=== PATIENT | female | born 1950 | race Caucasian/White ===

== ENCOUNTER 2016-10-20 21:58 | Observation (INO) | payer OTHER ==
[~2016-10-20] VITALS: Ht 162.6 cm; Wt 78.6 kg
--- NOTE | 2016-10-20 23:28 | DIAGNOSTIC IMAGING REPORT ---
PROCEDURE: XR CHEST 1 VIEW INDICATION: PALPITATIONS TECHNIQUE: Single view chest. 2320 hours COMPARISON: 08/24/2013 FINDINGS: The cardiopulmonary contour and central vasculature are stable, within normal limits. The lungs are clear without focal consolidation, pleural effusion or pneumothorax. The osseous structures are intact. IMPRESSION: 1. No evidence of acute cardiopulmonary disease.
--- NOTE | 2016-10-21 00:59 | ED ORDER SUMMARY ---
..... Patient: NATASHA SALAAZR OrderSheet [facility] VisitID: [id number] [place], [place] [id number] 66y, F Registration Date/Time: 10/20/2016 ORDER SHEET Weight: 72.5 kg (stated) Allergies: None GENERAL ORDERS: Chest 1V Urgent (22:19 10/20/2016 Musa CAMPOS) (Ack 22:24 CHagmisti ER Digital Media Planner) (1:53 CHagerty ER Digital Media Planner) Long Goods Drier (Continuous) (22:19 10/20/2016 Musa CAMPOS) (22:47 RMarsden R.N.) CBC w Diff Urgent (22:10/20/2016 Musa CAMPOS) (Ack 22:24 CHagmisti ER Digital Media Planner) (Collected 22:47 RMarsden R.N.) (23:21 RMarsden R.N.) CMP Urgent (22:19 10/20/2016 Musa CAMPOS) (Ack 22:24 CHagmisti ER Digital Media Planner) (Collected 22:47 RMarsden R.N.) (23:21 RMarsden R.N.) UA-Culture if indicated Urgent (22:19 10/20/2016 Musa CAMPOS) (Ack 22:24 Nadia ER Digital Media Planner) (Collected 22:47 RMarsden R.N.) (2:42 RMarsden R.N.) PT with INR Urgent (22:19 10/20/2016 Musa CAMPOS) (Ack 22:24 Nadia ER Digital Media Planner) (Collected 22:47 RMarsden R.N.) (23:21 RMarsden R.N.) PTT Urgent (22:19 10/20/2016 Musa CAMPOS) (Ack 22:24 Nadia ER Digital Media Planner) (Collected 22:47 RMarsden R.N.) (23:21 RMarsden R.N.) Amylase Urgent (22:19 10/20/2016 Musa CAMPOS) (Ack 22:24 Nadia ER Digital Media Planner) (Collected 22:47 RMarsden R.N.) (23:21 RMarsden R.N.) Lipase Urgent (22:19 10/20/2016 Musa CAMPOS) (Ack 22:24 CHagerty ER Digital Media Planner) (Collected 22:47 RMarsden R.N.) (23:21 RMarsden R.N.) CPK Urgent (22:19 10/20/2016 Musa CAMPOS) (Ack 22:24 CHagerty ER Digital Media Planner) (Collected 22:47 RMarsden R.N.) (23:21 RMarsden R.N.) Troponin-I Urgent (22:19 10/20/2016 Musa CAMPOS) (Ack 22:24 CHagerty ER Digital Media Planner) (23:21 RMarsden R.N.) BNP Urgent (22:19 10/20/2016 Musa CAMPOS) (Ack 22:24 CHagerty ER Digital Media Planner) (23:21 RMarsden R.N.) TSH Urgent (22:19 10/20/2016 Musa CAMPOS) (Ack 22:24 CHagerty ER Digital Media Planner) (23:21 RMarsden R.N.) Oxygen (2 L/min) (NC) (22:19 10/20/2016 Musa CAMPOS) (22:47 RMarsden R.N.) Pulse oximeter (22:19 10/20/2016 Musa CAMPOS) (22:47 RMarsden R.N.) EKG - ER Stat (22:19 10/20/2016 Musa CAMPOS) (22:31 CHagerty ER Digital Media Planner) MEDICATION ORDERS: IV FLUIDS: IV Saline Lock (22:19 10/20/2016 Musa CAMPOS) (22:48 RMarsden R.N.) ORDER SHEET NOTES: [Electronically signed by Paty Lenz R.N. (02:42 10/21/2016)] [Electronically signed by Sal López MD (11:13 10/21/2016)] [Electronically locked/signed by Paty Lenz R.N. (02:42 10/21/2016)]
--- NOTE | 2016-10-21 00:59 | ED CLINICAL REPORT ---
Clinical Report - Physicians/Mid Levels [facility] [address] [place] [address] 10/20/2016 21:58 Patient: NATASHA SALAZAR Time Seen: 22:18. Arrived- By private vehicle. Historian- patient. HISTORY OF PRESENT ILLNESS Chief Complaint: PALPITATIONS. It is described as an irregular heart beat. Not described as dizziness or weakness. This started today and is still present. Onset during rest. No history of caffeine use prior to onset, decongestants use prior to onset, cocaine use prior to onset or amphetamine use prior to onset. It was abrupt in onset and has been intermittent and waxing/waning. Modifying factors. Not worsened by anything. The patient has had chest discomfort ("a little indigestion"). No difficulty breathing, fainting episodes, dizziness, tingling or muscle spasms. Similar symptoms previously: Once. Diagnosis: (atrial fibrillation). REVIEW OF SYSTEMS All systems otherwise negative, except as recorded above. PAST HISTORY PCP - [facility]. Problems: Chest Pain. Ectopic . Back Pain. GI Bleeding. Hypertension. Additional Surgeries: Back Surgery. Medications: Tylenol Oral 650 mg, 2x a day. Sucralfate Oral 1 gm, as needed. Zolpidem Tartrate Oral (Tablet 10 mg) 1/2 tablet. Omeprazole Oral 20 mg, daily. Metoprolol Succinate ER Oral (Tablet Extended Release 24 Hour 25 mg) 1 tablet. Lisinopril Oral (Tablet 20 mg) 1 tablet, daily. Gabapentin Oral 200 mg, 2x a day. Coumadin Oral (Tablet 5 mg) 1 tablet, daily. Allergies: None. SOCIAL HISTORY Smoker- current status unknown. Regular alcohol use; consumes beer daily. No drug use. FAMILY HISTORY Denies family medical history. ADDITIONAL NOTES The nursing notes have been reviewed. PHYSICAL EXAM Vital Signs: 10/20/2016 22:08 BP: 117/69. HR: 84. RR: 15. O2 saturation: 95%. Temp: 97.9 F. Pain level now: 0/10. Have been reviewed. Appearance: Alert. Eyes: Pupils equal, round and reactive to light. ENT: Pharynx normal. Neck: Normal inspection. Neck supple. CVS: Normal heart rate and rhythm. Heart sounds normal. Respiratory: No respiratory distress. Breath sounds normal. Abdomen: Soft and nontender. Bowel sounds normal. No organomegaly. No mass. Back: Normal external inspection. Skin: Skin warm and dry. Normal skin color. Normal skin turgor. Extremities: Extremities exhibit normal ROM. No calf tenderness. No lower extremity edema. LABS, X-RAYS, AND EKG EKG: Rate: 69. Ectopic beats. Premature ventricular contractions. Changes present when compared to prior EKG. (25 August 2013). The study has been independently viewed by me. Chest X-ray: (IMPRESSION: 1. No evidence of acute cardiopulmonary disease.). The X-rays were interpreted by the radiologist and contemporaneously by me. Laboratory Tests: UA-Culture if indicated: (NICOLE: 10/21/2016 00:28) ( [facility] [place] 10/21/2016 00:42) Final results Test Result Flag Units (Reference) URINE COLOR YELLOW URINE APPEARANCE CLEAR URINE GLUCOSE NEGATIVE (NEGATIVE) URINE BILIRUBIN NEGATIVE (NEGATIVE) URINE KETONE NEGATIVE (NEGATIVE) URINE SPECIFIC GRAVITY <= 1.005 L (1.010-1.030) URINE PH 6.0 (5.0-8.0) URINE PROTEIN NEGATIVE (NEGATIVE) URINE UROBILINOGEN 0.2 EU/dL (0.2-1.0) URINE NITRITE NEGATIVE (NEGATIVE) URINE BLOOD 1+ (NEGATIVE) URINE LEUK ESTERASE POSITIVE (NEGATIVE) URINE RBC 0-1 rbc/hpf (0-1) URINE WBC 0-1 wbc/hpf (0-1) URINE EPITHELIAL CELLS 0-1 EPI/hpf (0-5) URINE BACTERIA TRACE (<1+) (NONE SEEN) URINE COMMENT CULTURE INDICATED URINE CULTURES ARE SET-UP BASED ON THE FOLLOWING CRITERIA:POSITIVE NITRITEPOSITIVE LEUKOCYTE ESTERASEGREATER THAN 10 WHITE BLOOD CELLSMODERATE (2+) OR GREATER BACTERIA CBC w Diff: (NICOLE: 10/20/2016 22:20) ( [facility] 10/20/2016 22:37) Final results Test Result Flag Units (Reference) WHITE BLOOD COUNT 8.5 K/uL (4.5-11.5) RED BLOOD COUNT 4.14 M/uL (4.00-5.20) HEMOGLOBIN 12.5 gm/dL (12.0-16.0) HEMATOCRIT 37.4 % (36.0-46.0) MEAN CELL VOLUME 90 fL (80-100) MEAN CORPUSCULAR HGB 30 pg (26-34) MEAN CORPUSCULAR HGB CONC 34 g/dL (31-37) RED CELL DISTRIBUTION WIDTH 13.9 % (11.6-14.8) PLATELET COUNT 300 K/uL (150-400) NEUTROPHIL % 56.2 % (50-75) LYMPH % 33.4 % (25-40) MONO % 7.9 % (3-14) EOSINOPHIL % 2.2 % (0-4) BASOPHIL % 0.3 % (0-2) PTT: (NICOLE: 10/20/2016 22:20) ( [facility] 10/20/2016 22:46) Final results Test Result Flag Units (Reference) INR 2.6 H (0.8-1.2) Low Intensity Therapy: INR 1.5-2.0 PT range 18.5-23.1Mod.Intensity Therapy: INR 2.0-3.0 PT range 23.1-31.5High Intensity Therapy: INR 2.5-3.5 PT range 27.4-35.5High Intensity Therapy 2: INR 3.0-4.0 PT range 31.5-39.3 APTT 36 H SECONDS (24-34) BNP: (NICOLE: 10/20/2016 22:20) ( [facility] 10/20/2016 22:52) Final results Test Result Flag Units (Reference) B-TYPE NATRIURETIC PEPTIDE 85 pg/ml (5-100) CMP: (NICOLE: 10/20/2016 22:20) ( [facility] 10/20/2016 23:01) Final results Test Result Flag Units (Reference) GLUCOSE 113 H mg/dL (70-110) BUN 16 mg/dL (7-18) CREATININE 0.9 mg/dL (0.6-1.3) Estimated GFR >60 mL/min Estimated GFR- >60 mL/min Note: Persistent reduction over 3 months in eGFR<60 mL/min/1.73 m2 defines CKD. Patients with eGFR values>=60 mL/min/1.73 m2 may also have CKD if evidence ofpersistent proteinuria. Additional information may be foundat www.kidney.org. SODIUM 137 mmol/L (136-145) POTASSIUM 3.6 mmol/L (3.5-5.1) CHLORIDE 99 mmol/L (98-107) CARBON DIOXIDE 28 mmol/L (21-32) CALCIUM 9.9 mg/dL (8.5-10.1) TOTAL PROTEIN 6.6 g/dL (6.4-8.2) ALBUMIN 3.6 g/dL (3.3-5.0) BILIRUBIN, TOTAL 0.3 mg/dL (0.0-1.0) ALKALINE PHOSPHATASE 74 U/L (46-116) AST (SGOT) 29 U/L (15-37) ALT (SGPT) 44 U/L (12-78) LIPASE 309 U/L (73-393) AMYLASE 75 U/L (25-115) CPK 89 U/L (24-260) TROPONIN I <0.05 ng/mL (0.00-1.5) TROPONIN REFERENCE RANGE:<0.1 NEGATIVE0.1-1.5 INDETERMINANT>1.5 POSITIVE THYROID STIMULATING HORMONE 1.710 uIU/mL (0.30-3.74) . PROGRESS AND PROCEDURES Discussed case with patient's primary care provider, (Josh). Reviewed test results and need for additional work-up. Agreed upon treatment plan, need for patient follow-up and decision to place in observation. Health care provider will see patient in hospital. Old medical records reviewed. Disposition orders written (in [employer]). Disposition: Admitted. Observation. CLINICAL IMPRESSION Chest pain. Palpitations. (Electronically signed by Sal López MD 10/21/2016 11:13)
--- NOTE | 2016-10-21 00:59 | ED NURSING NOTES ---
Clinical Report - Nurses [facility] [address] [place] [address] 10/20/2016 21:58 [id number] Triage time 22:08. Acuity: LEVEL 3. Chief Complaint: (irregular heart rate). 22:32 10/20/16. Alert. No acute distress. SEPSIS SCREEN: Sepsis Screen. Negative (no infection suspected/documented). WESLEY COMA SCORE: [place] Coma Scale: 15- eyes open spontaneously (4); best verbal response- oriented x 4 (5); best motor response- obeys commands (6). --22:32 Paty Lenz R.N. 22:08 10/20/16. BP: 117/69. HR: 84. RR: 15. O2 saturation: 95%. Temp: 97.9 F. Pain level now: 0/10. --22:32 Paty Lenz R.N. Weight: 72.5 kg stated. Height/Length: 64 inches Per Patient. BMI: 27.5. --22:32 Paty Lenz R.N. Medications Coumadin Oral (Tablet 5 mg) 1 tablet, daily. --22:23 Paty Lenz R.N. Gabapentin Oral 200 mg, 2x a day. --22:24 Paty Lenz R.N. Lisinopril Oral (Tablet 20 mg) 1 tablet, daily. --22:24 Paty Lenz R.N. Metoprolol Succinate ER Oral (Tablet Extended Release 24 Hour 25 mg) 1 tablet. --22:25 Paty Lenz R.N. Omeprazole Oral 20 mg, daily. --22:25 Paty Lenz R.N. Zolpidem Tartrate Oral (Tablet 10 mg) 1/2 tablet. --22:26 Paty Lenz R.N. Sucralfate Oral 1 gm, as needed. --22:26 Paty Lenz R.N. Tylenol Oral 650 mg, 2x a day. --22:27 Paty Lenz R.N. The following entry was struck by Paty Lenz R.N., 22:23 (10/20/16) Reason - other. <<STRICKEN ENTRY-- Warfarin Sodium Oral. --22:20 Paty Lenz R.N. --END STRIKE>>. Allergies None. --22:20 Paty Lenz R.N. History Historian: patient. ( Patient states "just after dinner my heart rate started feeling funny". She reports that she was cardioverted for a fib in Feb or Mar, and was concerned she would need that again.). ( nausea). Treatment SECURITY INCIDENT RESPONSE SPECIALIST: None. PAST MEDICAL HX: Immunizations: up-to-date. SOCIAL HX: Never smoker. Regular alcohol use; consumes three beers a day. No drug use. FALL RISK ASSESSMENT: Fall risk assessment completed. No fall risk identified. NUTRITIONAL RISK ASSESSMENT: The nutritional risk assessment revealed no deficiencies. FUNCTIONAL ASSESSMENT: Functional assessment: no impairments noted. LEARNING NEEDS ASSESSMENT: The learning needs assessment revealed no barriers. SKIN INTEGRITY ASSESSMENT: Skin integrity risk assessment completed. No skin integrity risk identified. --22:32 Paty Lenz R.N. PROBLEMS: Chest Pain. Ectopic . Back Pain. GI Bleeding. Hypertension. --22:20 Paty Lenz R.N. ADDITIONAL SURGERIES: Back Surgery. --22:20 Paty Lenz R.N. Interventions ID band on patient. To treatment room. --22:32 Paty Lenz R.N. PHYSICAL ASSESSMENT 22:34 10/20/16. Ambulatory to room. GENERAL / NEURO / PSYCH: Alert. Oriented X 4. Appears in no acute distress. RESPIRATORY: Respirations not labored. Chest nontender. Breath sounds within normal limits. CVS: Cardiac rhythm: sinus rhythm; (with PVCs). Capillary refill less than 2 seconds. Pulses within normal limits. GI / : Abdomen nontender and normal bowel sounds. SKIN: Skin intact. Skin is warm and dry. Normal skin turgor. --22:34 Paty Lenz R.N. NURSING PROGRESS NOTES 22:23 10/20/2016 Site #1 started via IV in the right antecubital space with an 20g angiocath; one attempt. Blood drawn: rainbow set. Saline lock flushed with 5 mL saline. --22:48 Paty Lenz R.N. 22:34 10/20/16. monitoring manager, pulse oximeter and NIBP monitor placed on patient. Patient gowned. Call light placed in reach. Side rails up x 1. Bed placed in lowest position. Brakes of bed on. Patient ready for evaluation- chart flagged and notification provided. --22:34 Paty Lenz R.N. ( patient aware she needs to provide urine.). --23:27 Paty Lenz R.N. 22:23. Patient ID band checked for patient name and birthdate. Blood samples drawn from the right antecubital space by nurse per protocol ; labeled in presence of the patient and sent to lab: rainbow set. Line flushed with 5 mL normal saline post blood draw. --23:28 Paty Lenz R.N. EKG time: (22:17). EKG was performed by a nurse and shown to the ED physician. performed by ELIOT Smalls. --23:29 Paty Lenz R.N. 00:31 10/21/16. Patient ID band checked for patient name and birthdate: patient confirmed. Instructions provided to collect clean catch urine and patient verbalized understanding. Clean catch urine collected with return of yellow-colored clear urine; odor is normal; sample sent to lab for urinalysis. Specimen labeled in the presence of the patient. --00:31 Paty Lenz R.N. ( patient given pillow and blankets for comfort.). --00:32 Paty Lenz R.N. DISPOSITION / DISCHARGE 02:15 10/21/16. Admitted to Acute Care. Report was given to a nurse via a phone call. Report included patient's care, treatment, medications, reviewed medication reconcilliation, and condition (including any recent changes or anticipated changes). All questions were answered. Report was acknowledged and care was transferred. --02:15 Paty Lenz R.N. <<STRICKEN ENTRY-- 02:40 10/21/16. Learning barriers present. Transported via stretcher by tech with IV. --02:40 Paty Lenz R.N. --END STRIKE>> Correction --02:40 Paty Lenz R.N. 02:08 10/21/16. BP: 117/65. HR: 65. RR: 18. O2 saturation: 98%. Pain level now: 0/10. --02:40 Paty Lenz R.N. 02:08 10/21/16. BP: 117/65. HR: 65. RR: 18. O2 saturation: 98%. Pain level now: 0/10. --02:40 Paty Lenz R.N. 02:22. Departure time: 02:22. Transported via stretcher by tech with IV. --02:41 Paty Lenz R.N. Locked/Released at 10/21/2016 2:42 by Paty Lenz R.N.
--- NOTE | 2016-10-21 00:59 | ED NURSING NOTES ---
Clinical Report - Nurses [facility] [address] [place] [address] 10/20/2016 21:58 [id number] Triage time 22:08. Acuity: LEVEL 3. Chief Complaint: (irregular heart rate). 22:32 10/20/16. Alert. No acute distress. SEPSIS SCREEN: Sepsis Screen. Negative (no infection suspected/documented). WESLEY COMA SCORE: [place] Coma Scale: 15- eyes open spontaneously (4); best verbal response- oriented x 4 (5); best motor response- obeys commands (6). --22:32 Paty Lenz R.N. 22:08 10/20/16. BP: 117/69. HR: 84. RR: 15. O2 saturation: 95%. Temp: 97.9 F. Pain level now: 0/10. --22:32 Paty Lenz R.N. Weight: 72.5 kg stated. Height/Length: 64 inches Per Patient. BMI: 27.5. --22:32 Paty Lenz R.N. Medications Coumadin Oral (Tablet 5 mg) 1 tablet, daily. --22:23 Paty Lenz R.N. Gabapentin Oral 200 mg, 2x a day. --22:24 Paty Lenz R.N. Lisinopril Oral (Tablet 20 mg) 1 tablet, daily. --22:24 Payt Lenz R.N. Metoprolol Succinate ER Oral (Tablet Extended Release 24 Hour 25 mg) 1 tablet. --22:25 Paty Lenz R.N. Omeprazole Oral 20 mg, daily. --22:25 Paty Lenz R.N. Zolpidem Tartrate Oral (Tablet 10 mg) 1/2 tablet. --22:26 Paty Lenz R.N. Sucralfate Oral 1 gm, as needed. --22:26 Paty Lenz R.N. Tylenol Oral 650 mg, 2x a day. --22:27 Paty Lenz R.N. The following entry was struck by Paty Lenz R.N., 22:23 (10/20/16) Reason - other. <<STRICKEN ENTRY-- Warfarin Sodium Oral. --22:20 Paty Lenz R.N. --END STRIKE>>. Allergies None. --22:20 Paty Lenz R.N. History Historian: patient. ( Patient states "just after dinner my heart rate started feeling funny". She reports that she was cardioverted for a fib in Feb or Mar, and was concerned she would need that again.). ( nausea). Treatment PHYSICAL TRAINER: None. PAST MEDICAL HX: Immunizations: up-to-date. SOCIAL HX: Never smoker. Regular alcohol use; consumes three beers a day. No drug use. FALL RISK ASSESSMENT: Fall risk assessment completed. No fall risk identified. NUTRITIONAL RISK ASSESSMENT: The nutritional risk assessment revealed no deficiencies. FUNCTIONAL ASSESSMENT: Functional assessment: no impairments noted. LEARNING NEEDS ASSESSMENT: The learning needs assessment revealed no barriers. SKIN INTEGRITY ASSESSMENT: Skin integrity risk assessment completed. No skin integrity risk identified. --22:32 Paty Lenz R.N. PROBLEMS: Chest Pain. Ectopic . Back Pain. GI Bleeding. Hypertension. --22:20 Paty Lenz R.N. ADDITIONAL SURGERIES: Back Surgery. --22:20 Paty Lenz R.N. Interventions ID band on patient. To treatment room. --22:32 Paty Lenz R.N. PHYSICAL ASSESSMENT 22:34 10/20/16. Ambulatory to room. GENERAL / NEURO / PSYCH: Alert. Oriented X 4. Appears in no acute distress. RESPIRATORY: Respirations not labored. Chest nontender. Breath sounds within normal limits. CVS: Cardiac rhythm: sinus rhythm; (with PVCs). Capillary refill less than 2 seconds. Pulses within normal limits. GI / : Abdomen nontender and normal bowel sounds. SKIN: Skin intact. Skin is warm and dry. Normal skin turgor. --22:34 Paty Lenz R.N. NURSING PROGRESS NOTES 22:23 10/20/2016 Site #1 started via IV in the right antecubital space with an 20g angiocath; one attempt. Blood drawn: rainbow set. Saline lock flushed with 5 mL saline. --22:48 Paty Lenz R.N. 22:34 10/20/16. hospital monitor, pulse oximeter and NIBP monitor placed on patient. Patient gowned. Call light placed in reach. Side rails up x 1. Bed placed in lowest position. Brakes of bed on. Patient ready for evaluation- chart flagged and notification provided. --22:34 Paty Lenz R.N. ( patient aware she needs to provide urine.). --23:27 Paty Lenz R.N. 22:23. Patient ID band checked for patient name and birthdate. Blood samples drawn from the right antecubital space by nurse per protocol ; labeled in presence of the patient and sent to lab: rainbow set. Line flushed with 5 mL normal saline post blood draw. --23:28 Paty Lenz R.N. EKG time: (22:17). EKG was performed by a nurse and shown to the ED physician. performed by ELIOT Smalls. --23:29 Paty Lenz R.N. 00:31 10/21/16. Patient ID band checked for patient name and birthdate: patient confirmed. Instructions provided to collect clean catch urine and patient verbalized understanding. Clean catch urine collected with return of yellow-colored clear urine; odor is normal; sample sent to lab for urinalysis. Specimen labeled in the presence of the patient. --00:31 Paty Lenz R.N. ( patient given pillow and blankets for comfort.). --00:32 Paty Lenz R.N. DISPOSITION / DISCHARGE 02:15 10/21/16. Admitted to Acute Care. Report was given to a nurse via a phone call. Report included patient's care, treatment, medications, reviewed medication reconcilliation, and condition (including any recent changes or anticipated changes). All questions were answered. Report was acknowledged and care was transferred. --02:15 Paty Lenz R.N. <<STRICKEN ENTRY-- 02:40 10/21/16. Learning barriers present. Transported via stretcher by tech with IV. --02:40 Paty Lenz R.N. --END STRIKE>> Correction --02:40 Paty Lenz R.N. 02:08 10/21/16. BP: 117/65. HR: 65. RR: 18. O2 saturation: 98%. Pain level now: 0/10. --02:40 Paty Lenz R.N. 02:08 10/21/16. BP: 117/65. HR: 65. RR: 18. O2 saturation: 98%. Pain level now: 0/10. --02:40 Paty Lenz R.N. 02:22. Departure time: 02:22. Transported via stretcher by tech with IV. --02:41 Paty Lenz R.N. Locked/Released at 10/21/2016 2:42 by Paty Lenz R.N.
--- NOTE | 2016-10-21 00:59 | ED CLINICAL REPORT ---
Clinical Report - Physicians/Mid Levels [facility] [address] [place] [address] 10/20/2016 21:58 Patient: NATASHA SALAZAR Time Seen: 22:18. Arrived- By private vehicle. Historian- patient. HISTORY OF PRESENT ILLNESS Chief Complaint: PALPITATIONS. It is described as an irregular heart beat. Not described as dizziness or weakness. This started today and is still present. Onset during rest. No history of caffeine use prior to onset, decongestants use prior to onset, cocaine use prior to onset or amphetamine use prior to onset. It was abrupt in onset and has been intermittent and waxing/waning. Modifying factors. Not worsened by anything. The patient has had chest discomfort ("a little indigestion"). No difficulty breathing, fainting episodes, dizziness, tingling or muscle spasms. Similar symptoms previously: Once. Diagnosis: (atrial fibrillation). REVIEW OF SYSTEMS All systems otherwise negative, except as recorded above. PAST HISTORY PCP - [facility]. Problems: Chest Pain. Ectopic . Back Pain. GI Bleeding. Hypertension. Additional Surgeries: Back Surgery. Medications: Tylenol Oral 650 mg, 2x a day. Sucralfate Oral 1 gm, as needed. Zolpidem Tartrate Oral (Tablet 10 mg) 1/2 tablet. Omeprazole Oral 20 mg, daily. Metoprolol Succinate ER Oral (Tablet Extended Release 24 Hour 25 mg) 1 tablet. Lisinopril Oral (Tablet 20 mg) 1 tablet, daily. Gabapentin Oral 200 mg, 2x a day. Coumadin Oral (Tablet 5 mg) 1 tablet, daily. Allergies: None. SOCIAL HISTORY Smoker- current status unknown. Regular alcohol use; consumes beer daily. No drug use. FAMILY HISTORY Denies family medical history. ADDITIONAL NOTES The nursing notes have been reviewed. PHYSICAL EXAM Vital Signs: 10/20/2016 22:08 BP: 117/69. HR: 84. RR: 15. O2 saturation: 95%. Temp: 97.9 F. Pain level now: 0/10. Have been reviewed. Appearance: Alert. Eyes: Pupils equal, round and reactive to light. ENT: Pharynx normal. Neck: Normal inspection. Neck supple. CVS: Normal heart rate and rhythm. Heart sounds normal. Respiratory: No respiratory distress. Breath sounds normal. Abdomen: Soft and nontender. Bowel sounds normal. No organomegaly. No mass. Back: Normal external inspection. Skin: Skin warm and dry. Normal skin color. Normal skin turgor. Extremities: Extremities exhibit normal ROM. No calf tenderness. No lower extremity edema. LABS, X-RAYS, AND EKG EKG: Rate: 69. Ectopic beats. Premature ventricular contractions. Changes present when compared to prior EKG. (25 August 2013). The study has been independently viewed by me. Chest X-ray: (IMPRESSION: 1. No evidence of acute cardiopulmonary disease.). The X-rays were interpreted by the radiologist and contemporaneously by me. Laboratory Tests: UA-Culture if indicated: (NICOLE: 10/21/2016 00:28) ( [facility] 10/21/2016 00:42) Final results Test Result Flag Units (Reference) URINE COLOR YELLOW URINE APPEARANCE CLEAR URINE GLUCOSE NEGATIVE (NEGATIVE) URINE BILIRUBIN NEGATIVE (NEGATIVE) URINE KETONE NEGATIVE (NEGATIVE) URINE SPECIFIC GRAVITY <= 1.005 L (1.010-1.030) URINE PH 6.0 (5.0-8.0) URINE PROTEIN NEGATIVE (NEGATIVE) URINE UROBILINOGEN 0.2 EU/dL (0.2-1.0) URINE NITRITE NEGATIVE (NEGATIVE) URINE BLOOD 1+ (NEGATIVE) URINE LEUK ESTERASE POSITIVE (NEGATIVE) URINE RBC 0-1 rbc/hpf (0-1) URINE WBC 0-1 wbc/hpf (0-1) URINE EPITHELIAL CELLS 0-1 EPI/hpf (0-5) URINE BACTERIA TRACE (<1+) (NONE SEEN) URINE COMMENT CULTURE INDICATED URINE CULTURES ARE SET-UP BASED ON THE FOLLOWING CRITERIA:POSITIVE NITRITEPOSITIVE LEUKOCYTE ESTERASEGREATER THAN 10 WHITE BLOOD CELLSMODERATE (2+) OR GREATER BACTERIA CBC w Diff: (NICOLE: 10/20/2016 22:20) ( [facility] 10/20/2016 22:37) Final results Test Result Flag Units (Reference) WHITE BLOOD COUNT 8.5 K/uL (4.5-11.5) RED BLOOD COUNT 4.14 M/uL (4.00-5.20) HEMOGLOBIN 12.5 gm/dL (12.0-16.0) HEMATOCRIT 37.4 % (36.0-46.0) MEAN CELL VOLUME 90 fL (80-100) MEAN CORPUSCULAR HGB 30 pg (26-34) MEAN CORPUSCULAR HGB CONC 34 g/dL (31-37) RED CELL DISTRIBUTION WIDTH 13.9 % (11.6-14.8) PLATELET COUNT 300 K/uL (150-400) NEUTROPHIL % 56.2 % (50-75) LYMPH % 33.4 % (25-40) MONO % 7.9 % (3-14) EOSINOPHIL % 2.2 % (0-4) BASOPHIL % 0.3 % (0-2) PTT: (NICOLE: 10/20/2016 22:20) ( [facility] 10/20/2016 22:46) Final results Test Result Flag Units (Reference) INR 2.6 H (0.8-1.2) Low Intensity Therapy: INR 1.5-2.0 PT range 18.5-23.1Mod.Intensity Therapy: INR 2.0-3.0 PT range 23.1-31.5High Intensity Therapy: INR 2.5-3.5 PT range 27.4-35.5High Intensity Therapy 2: INR 3.0-4.0 PT range 31.5-39.3 APTT 36 H SECONDS (24-34) BNP: (NICOLE: 10/20/2016 22:20) ( [facility] 10/20/2016 22:52) Final results Test Result Flag Units (Reference) B-TYPE NATRIURETIC PEPTIDE 85 pg/ml (5-100) CMP: (NICOLE: 10/20/2016 22:20) ( [facility] 10/20/2016 23:01) Final results Test Result Flag Units (Reference) GLUCOSE 113 H mg/dL (70-110) BUN 16 mg/dL (7-18) CREATININE 0.9 mg/dL (0.6-1.3) Estimated GFR >60 mL/min Estimated GFR- >60 mL/min Note: Persistent reduction over 3 months in eGFR<60 mL/min/1.73 m2 defines CKD. Patients with eGFR values>=60 mL/min/1.73 m2 may also have CKD if evidence ofpersistent proteinuria. Additional information may be foundat www.kidney.org. SODIUM 137 mmol/L (136-145) POTASSIUM 3.6 mmol/L (3.5-5.1) CHLORIDE 99 mmol/L (98-107) CARBON DIOXIDE 28 mmol/L (21-32) CALCIUM 9.9 mg/dL (8.5-10.1) TOTAL PROTEIN 6.6 g/dL (6.4-8.2) ALBUMIN 3.6 g/dL (3.3-5.0) BILIRUBIN, TOTAL 0.3 mg/dL (0.0-1.0) ALKALINE PHOSPHATASE 74 U/L (46-116) AST (SGOT) 29 U/L (15-37) ALT (SGPT) 44 U/L (12-78) LIPASE 309 U/L (73-393) AMYLASE 75 U/L (25-115) CPK 89 U/L (24-260) TROPONIN I <0.05 ng/mL (0.00-1.5) TROPONIN REFERENCE RANGE:<0.1 NEGATIVE0.1-1.5 INDETERMINANT>1.5 POSITIVE THYROID STIMULATING HORMONE 1.710 uIU/mL (0.30-3.74) . PROGRESS AND PROCEDURES Discussed case with patient's primary care provider, (Josh). Reviewed test results and need for additional work-up. Agreed upon treatment plan, need for patient follow-up and decision to place in observation. Health care provider will see patient in hospital. Old medical records reviewed. Disposition orders written (in [employer]). Disposition: Admitted. Observation. CLINICAL IMPRESSION Chest pain. Palpitations. (Electronically signed by Sal López MD 10/21/2016 11:13)
--- NOTE | 2016-10-21 00:59 | ED ORDER SUMMARY ---
..... Patient: NATASHA SALAZAR OrderSheet [facility] VisitID: [id number] [place] [id number] 66y, F Registration Date/Time: 10/20/2016 ORDER SHEET Weight: 72.5 kg (stated) Allergies: None GENERAL ORDERS: Chest 1V Urgent (22:19 10/20/2016 Musa CAMPOS) (Ack 22:24 CHagmisti ER Shop Clerk) (1:53 CHagerty ER Shop Clerk) Ecommerce Merchandising Manager (Continuous) (22:19 10/20/2016 Musa CAMPOS) (22:47 RMarsden R.N.) CBC w Diff Urgent (22:10/20/2016 Musa CAMPOS) (Ack 22:24 CHagmisti ER Shop Clerk) (Collected 22:47 RMarsden R.N.) (23:21 RMarsden R.N.) CMP Urgent (22:19 10/20/2016 Musa CAMPOS) (Ack 22:24 CHagmisti ER Shop Clerk) (Collected 22:47 RMarsden R.N.) (23:21 RMarsden R.N.) UA-Culture if indicated Urgent (22:19 10/20/2016 Musa CAMPOS) (Ack 22:24 Nadia ER Shop Clerk) (Collected 22:47 RMarsden R.N.) (2:42 RMarsden R.N.) PT with INR Urgent (22:19 10/20/2016 Musa CAMPOS) (Ack 22:24 Nadia ER Shop Clerk) (Collected 22:47 RMarsden R.N.) (23:21 RMarsden R.N.) PTT Urgent (22:19 10/20/2016 Musa CAMPOS) (Ack 22:24 Nadia ER Shop Clerk) (Collected 22:47 RMarsden R.N.) (23:21 RMarsden R.N.) Amylase Urgent (22:19 10/20/2016 Musa CAMPOS) (Ack 22:24 Nadia ER Shop Clerk) (Collected 22:47 RMarsden R.N.) (23:21 RMarsden R.N.) Lipase Urgent (22:19 10/20/2016 Musa CAMPOS) (Ack 22:24 CHagerty ER Shop Clerk) (Collected 22:47 RMarsden R.N.) (23:21 RMarsden R.N.) CPK Urgent (22:19 10/20/2016 Musa CAMPOS) (Ack 22:24 CHagerty ER Shop Clerk) (Collected 22:47 RMarsden R.N.) (23:21 RMarsden R.N.) Troponin-I Urgent (22:19 10/20/2016 Musa CAMPOS) (Ack 22:24 CHagerty ER Shop Clerk) (23:21 RMarsden R.N.) BNP Urgent (22:19 10/20/2016 Musa CAMPOS) (Ack 22:24 CHagerty ER Shop Clerk) (23:21 RMarsden R.N.) TSH Urgent (22:19 10/20/2016 Musa CAMPOS) (Ack 22:24 CHagerty ER Shop Clerk) (23:21 RMarsden R.N.) Oxygen (2 L/min) (NC) (22:19 10/20/2016 Musa CAMPOS) (22:47 RMarsden R.N.) Pulse oximeter (22:19 10/20/2016 Musa CAMPOS) (22:47 RMarsden R.N.) EKG - ER Stat (22:19 10/20/2016 Musa CAMPOS) (22:31 CHagerty ER Shop Clerk) MEDICATION ORDERS: IV FLUIDS: IV Saline Lock (22:19 10/20/2016 Musa CAMPOS) (22:48 RMarsden R.N.) ORDER SHEET NOTES: [Electronically signed by Paty Lenz R.N. (02:42 10/21/2016)] [Electronically signed by Sal López MD (11:13 10/21/2016)] [Electronically locked/signed by Paty Lenz R.N. (02:42 10/21/2016)]
[2016-10-21] MEDS ORDERED: FOSAMAX70 MG PO (02:11)
[2016-10-21 03:15] VITALS: BP 95/65
[2016-10-21] MEDS ORDERED: COUMADIN5 MG PO (03:52)
[2016-10-21] MEDS ORDERED: TOPROL XL200 MG PO (03:53)
[2016-10-21] MEDS ORDERED: OMEPRAZOLE20 M1 PO (03:53)
[2016-10-21] MEDS ORDERED: LISINOPRIL/HYDR1 TA1 PO (03:53)
[2016-10-21] MEDS ORDERED: CARAFATE EQUIVAL1 GM PO ×2 (03:54)
[2016-10-21] MEDS ORDERED: TYLENOL EXTRA500 MG PO (03:55)
[2016-10-21] MEDS ORDERED: ZOLPIDEM TARTRAT5 MG PO (03:55)
[2016-10-21] MEDS ORDERED: NEURONTIN100 MG PO (03:55)
[2016-10-21 06:57] VITALS: BP 136/71
--- NOTE | 2016-10-21 07:03 | HISTORY AND PHYSICAL ---
ADMITTED: 10/21/2016 HISTORY OF PRESENT ILLNESS: The patient is a 66-year-old woman who has had problems with palpitations for quite some time and also a problem with some intermittent atrial fibrillation. She also has had longstanding hypertension. She developed some increased heart palpitations over the last week or so, more so than usual. This evening she seemed to have some significant increase in the palpitations. These were associated with a vague feeling of nausea that seemed to be persistent. It did not really seem to respond too much to the sucralfate. She decided she should come into the emergency department for evaluation. She had an EKG that showed intermittent PVCs, but no other new major problems. She nevertheless was felt to be possibly at risk for having cardiac ischemia and has been admitted to have monitoring and serial enzymes checked and to consider proceeding with a heart stress test. MEDICAL/SURGICAL HISTORY: Past medical history is remarkable for longstanding hypertension and episodic PVCs. She has had problems with atrial fibrillation in the last year and a half or so. She has been on Coumadin for this. She also has longstanding problems with lumbar disk disease. Other problems include restless leg syndrome, gastric hyperacidity with reflux, remote history of duodenal ulcer and gastrointestinal bleeding associated with this. She also has some tendency towards osteopenia. Surgical history: Remarkable for remote appendectomy and tonsillectomy. She had 2 normal pregnancies and deliveries. She did have an ectopic as well that was removed surgically. She has had lumbar disk surgery. She also has had a heart catheterization done about 2-1/2 to 3 years ago. MEDICATIONS: 1. Metoprolol succinate 200 mg daily. 2. Warfarin 5 mg daily. 3. Alprazolam 0.25 mg at bedtime for sleep assistance and anxiety. 4. Zolpidem 5 mg at bedtime p.r.n. sleeplessness. 5. Omeprazole 20 mg daily for stomach acid control. 6. Gabapentin 300 mg b.i.d. for restless leg symptoms. 7. Lisinopril 20 mg daily for blood pressure control. ALLERGIES: NONE. SOCIAL HISTORY: Indicates the patient is . 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 She did smoke many years ago. She occasionally drinks beer and had 2 beers in the afternoon several hours before starting to have the increased PVCs. FAMILY HISTORY: Remarkable for a mother who had Alzheimer's, and hypertension, who around age 83. The patient's father had quite severe chronic obstructive pulmonary disease and emphysema and around age 78. He also had some heart problems. REVIEW OF SYSTEMS: HEENT has been okay. Respiratory has been okay with no cough or shortness of breath. Cardiovascular as noted above. Gastrointestinal is remarkable for ongoing heartburn which flare up if she is not taking the omeprazole regularly. Genitourinary is okay. Musculoskeletal is remarkable for chronic lower back pain. She has been on longstanding narcotic pain medication for a number of years, but over the last year or so has switched to just plain Tylenol and feels that she does about as well with this. Skin has been okay. Neurologic has been okay with no focal numbness or weakness. Psychiatric is okay. PHYSICAL EXAMINATION: GENERAL: Shows a the patient to be a white female, appearing to be of her stated age. VITAL SIGNS: Blood pressure is in the 117/70 range with heart rate of around 80, and respiratory rate is about 15. Temperature has been okay at 97.9. HEENT: Head is normal. Ear canals and tympanic membranes are normal. Eyes show pupils equal, round, and reactive to light with normal extraocular movements. Fundi show flat disks, normal vessels. Nose and throat are clear. NECK: Supple without significant adenopathy. CHEST: Clear to auscultation and percussion. HEART: Reveals normal S1 and S2 with no distinct murmur or S3. BREASTS: Show no masses. There is no axillary adenopathy. ABDOMEN: Nontender with no organomegaly or mass. Bowel tones are normal. PELVIC AND RECTAL: Not done. EXTREMITIES: Show no edema. Peripheral pulses are normal with +2 dorsalis pedis and posterior tibial pulses. SKIN: Normal. LAB/IMAGING: Show white blood cell count to be 8500, hemoglobin is 12.5, hematocrit is 37.4. Protime INR is 2.6. Sodium is 137, potassium 3.6, chloride 99, CO2 of 28, glucose 113, creatinine 0.9, BUN 16. Alkaline phosphatase 74, SGOT is 29, SGPT is 46. Troponin I is less than 0.05. CPK is pending. BNP is 85. Amylase is 75. Lipase is 309. TSH is 1.71. Urinalysis shows leukocyte esterase positive but with no significant white blood cells, red blood cells or bacteria. Chest x-ray is stable. EKG shows a normal sinus rhythm with occasional PVCs. Brandon is about +20. There is no significant ST-segment elevations or depressions. Occasional PVCs are noted. Chest x-ray is stable. There is no evidence of infiltrate or mass. IMPRESSION: 1. The patient is presenting with symptoms of increased premature ventricular contractions. She may be a candidate to have a heart stress test repeated. She will consider having a heart stress test, depending on the outcome of serial enzymes and repeat EKG. 2. She does have ongoing problems with gastroesophageal reflux and gastric hyperacidity. 3. She also has restless leg syndrome and quite significant difficulties with degenerative disk problems in the lower back requiring long-term treatment with Tylenol. 4. She does have some occasional headaches. PLAN: The patient is admitted to observation status to have cardiac enzymes monitored and heart rhythm monitored. She will also consider proceeding with heart stress testing depending on the outcome of her cardiac enzymes. She will be continued on her usual medications for gastroesophageal reflux, restless leg syndrome, and gastric hyperacidity. She also will keep up with the metoprolol for blood pressure control.
--- NOTE | 2016-10-21 08:25 | Provider's Discharge Care Plan ---
Problem, Goal, Plan Problem List 1. Palpitations Goals: Improve disease control, Improve function, Improved health/wellness Instructions: Follow up as directed, Increase activity level, Take meds as directed, Reduce stress, we will schedule heart stress test as outpatient. 2. Essential hypertension Goals: Improve disease control, Improve function, Improved health/wellness Instructions: Follow up as directed, Increase activity level, Take meds as directed, Reduce stress 3. Restless leg syndrome Goals: Improve disease control, Improve function, Improved health/wellness Instructions: Follow up as directed, Increase activity level, Take meds as directed, Reduce stress 4. Gastric hyperacidity Goals: Improve disease control, Improve function, Improved health/wellness, Increase independence Instructions: Follow up as directed, Increase activity level, Take meds as directed, Reduce stress 5. Atrial fibrillation Goals: Improve disease control, Improve function, Improved health/wellness, Increase independence Instructions: Follow up as directed, Increase activity level, Take meds as directed, Reduce stress
--- NOTE | 2016-10-21 11:13 | ED MED RECONCILIATION SUMMARY ---
Patient: NATASHA SALAZAR Medication Reconciliation Report [facility] VisitID: [id number] [address] [place] [address] 66y, F Registration Date/Time: 10/20/2016 Weight: 72.5 kg Height/Length: 64 in. BMI: 27.5 ALLERGIES: None The patient's Home Medications are listed below: THE FOLLOWING MEDICATIONS NEED TO BE RECONCILED: Coumadin Oral (5 mg) 1 tablet, daily Gabapentin Oral 200 mg, 2x a day Lisinopril Oral (20 mg) 1 tablet, daily Metoprolol Succinate ER Oral (25 mg) 1 tablet Omeprazole Oral 20 mg, daily Sucralfate Oral 1 gm Tylenol Oral 650 mg, 2x a day Zolpidem Tartrate Oral (10 mg) 1/2 tablet The source(s) of the original Home Medication information: Not obtained. The following Medications were given to the patient in the Emergency Department: None. The following Medications were prescribed to the patient: None.
--- NOTE | 2016-10-21 11:13 | ED MED RECONCILIATION SUMMARY ---
Patient: NATASHA SALAZAR Medication Reconciliation Report [facility] VisitID: [id number] [address] [place] [address] 66y, F Registration Date/Time: 10/20/2016 Weight: 72.5 kg Height/Length: 64 in. BMI: 27.5 ALLERGIES: None The patient's Home Medications are listed below: THE FOLLOWING MEDICATIONS NEED TO BE RECONCILED: Coumadin Oral (5 mg) 1 tablet, daily Gabapentin Oral 200 mg, 2x a day Lisinopril Oral (20 mg) 1 tablet, daily Metoprolol Succinate ER Oral (25 mg) 1 tablet Omeprazole Oral 20 mg, daily Sucralfate Oral 1 gm Tylenol Oral 650 mg, 2x a day Zolpidem Tartrate Oral (10 mg) 1/2 tablet The source(s) of the original Home Medication information: Not obtained. The following Medications were given to the patient in the Emergency Department: None. The following Medications were prescribed to the patient: None.
--- NOTE | 2016-10-21 11:13 | ED MAR SUMMARY ---
..... Medication Administration Record [facility] [address] [place], [place] [id number] Patient: NATASHA SALAZAR Visit ID: [id number] 66y, F Weight: 72.5 kg Height/Length: 64 in BMI: 27.5 ALLERGIES: None
--- NOTE | 2016-10-21 11:13 | ED DISCHARGE INSTRUCTIONS ---
Patient: NATASHA SALAZAR General Instructions [facility] VisitID: [id number] [address] [place] [address] 66y, F Registration Date/Time: 10/20/2016 Chest pain. Palpitations. (Electronically signed by Sal López MD 10/21/2016 11:13)
--- NOTE | 2016-10-21 11:13 | ED MAR SUMMARY ---
..... Medication Administration Record [facility] [address] [place], [place] [id number] Patient: NATASHA SALAZAR Visit ID: [id number] 66y, F Weight: 72.5 kg Height/Length: 64 in BMI: 27.5 ALLERGIES: None
--- NOTE | 2016-10-21 11:13 | ED DISCHARGE INSTRUCTIONS ---
Patient: NATASHA SALAZAR General Instructions VisitID: [id number] [address] [place] [address] 66y, F Registration Date/Time: 10/20/2016 Chest pain. Palpitations. (Electronically signed by Sal López MD 10/21/2016 11:13)
== END 2016-10-21 09:15 | disposition home or self-care (01) ==
LOC: ED SRH 21:58 → TRANS SRH 10-21 01:26 → ACUTE2 SRH 10-21 01:26
PROVIDERS: ADMIT Family Medicine
DX: I49.3 Ventricular premature depolarization (principal); R07.89 Other chest pain; R11.0 Nausea; I48.91 Unspecified atrial fibrillation; Z79.01 Long term (current) use of anticoagulants; I10 Essential (primary) hypertension; G25.81 Restless legs syndrome; M51.36 Other intervertebral disc degeneration, lumbar region
CPT/HCPCS: 29230; 90004; 90047; 90074; 90100; 90469; 90616; 91320; 92235; 92530; 92610; 93140; 94001; 94060; 95059